=== PATIENT | male | born 1955 | race Caucasian/White ===

== ENCOUNTER 2021-07-22 15:11 | Emergency (ER) | payer MEDICARE ==
[2021-07-22 16:56] VITALS: BP 121/78; PULSE 103; RESP 18; TEMP 98.1
[2021-07-22] MEDS ORDERED: SULFAMETHOX-TMP 800-160MG 1 EACH TAB PO STA (20:16)
[2021-07-22] MEDS ORDERED: HYDROcodone/APAP 5-325MG 1 EACH TAB PO STA (20:16)
--- NOTE | 2021-07-22 21:13 | ED ---
General Adult HPI - General Chief complaint: Skin/Abscess/Foreign Body Stated complaint: infected surgical site Time Seen by Provider: 07/22/21 19:38 Source: patient, RN notes reviewed, old records reviewed Mode of arrival: ambulatory Limitations: no limitations - History of Present Illness Initial comments: I evaluated the patient when he was placed in a room. 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 Patient states that the I&D took place [place]. He recently [place] here. He originally had it I&D of a small groin boil secondary to a suspicious ingrown hair multiple months ago. He states it recurred and was again I&D'd last week at an outside hospital. He states it is continuing to drain, however he cannot see it and wishes for her to be evaluated. He was not given any antibiotics. Denies any fevers, chills, sick contacts, chest pain, cough, abdominal pain, nausea, vomiting. He otherwise has no acute complaints this time. He states is still draining into the pads a red- colored discharge. Denies any urinary complaints. He is having bowel movements. Has no other acute complaints at this time. He has no follow-up and this area and had nowhere else to go. - Related Data Previous Rx's Medication Instructions Recorded Sulfamethox-Tmp 800-160Mg [Bactrim 1 tab PO Q12HR 7 Days #14 tab 07/22/21 DS 800-160 mg] Allergies Allergy/AdvReac Type Severity Reaction Status Date / Time No Known Allergies Allergy Verified 07/22/21 16:56 Review of Systems ROS Statement: Those systems with pertinent positive or pertinent negative responses have been documented in the HPI. Review of Systems: CONST: Denies fever EYES: Denies blurry vision ENT: Denies nasal congestion C/V: Denies Chest pain RESP: Denies shortness of breath GI: Denies abdominal pain : Denies dysuria SKIN: Endorses groin lanced boil MSK: Denies joint pain. NEURO: Denies headache ROS Other: All systems not noted in ROS Statement are negative. Past Medical History Past Medical History: Hyperlipidemia, Hypertension, Seizure Disorder Additional Past Medical History / Comment(s): lung CA, right side lobectomy History of Any Multi-Drug Resistant Organisms: MRSA Date of last positivie culture/infection: 2020 Past Surgical History: Appendectomy, Cholecystectomy Additional Past Surgical History / Comment(s): colonoscopy with polyp removal, brain surgery with aneurysm clip Past Psychological History: No Psychological Hx Reported Smoking Status: Current every day smoker Past Alcohol Use History: None Reported Past Drug Use History: None Reported General Exam - General Exam Comments Initial Comments: General: Appears in no acute distress. HEAD: Normal with no signs of head trauma. EYES: EOMI ENT: Hearing grossly intact RESPIRATORY: Clear breath sounds bilaterally. No wheezes, rales, or rhonchi. C/V: Regular rate and rhythm. S1 and S2 auscultated, no edema, peripheral pulses 2+ and intact throughout ABD: Abd is soft, nontender, nondistended EXT: No obvious deformity SKIN:. Medial exam was performed in the presence of the staff member. Patient has a lanced area of skin located in the perineal region midline between the testicles and anus. It is actively draining what appears to be more of a serious fluid. However there is surrounding erythema concerning for a mild cellulitis. No obvious fluctuance is palpated. There is no induration. NEURO: Alert and oriented 4. Limitations: no limitations Course Vital Signs 07/22/21 16:47 Temperature 98.1 F Pulse Rate 103 H Respiratory 18 Rate Blood Pressure 121/78 O2 Sat by Pulse 95 Oximetry Medical Decision Making - Medical Decision Making Based on patient's presentation and physical exam, patient is a mild area of cellulitis around her recently lanced abscess located in the perineal region. I did place the ultrasound on the region and attempted pertinent picture but was unsuccessful. There was no signs of abscess or collection of fluid below the recently lanced area. It is actively draining. Due to this running cellulitis I will start the patient on Bactrim. He was given [place] for analgesia here in the department. I'll provide him with follow-up information with surgery at his request. I will provide the patient with a prescription for Bactrim DS . I instructed the patient to follow up with their PCP in the next 3 days. [I provided contact information for follow up with] [facility]. I explained that the patient should return to the emergency department if they experience any worsening symptoms. Strict return precautions were discussed with the patient. The patient expressed understanding of these instructions. I answered all questions that the patient had. The patient was discharged home in fair condition with their prescriptions and follow up information. Disposition Clinical Impression: History of incision and drainage, Cellulitis Disposition: HOME SELF-CARE Condition: Fair Instructions (If sedation given, give patient instructions): Cellulitis (ED), Abscess Incision and Drainage (ED) Prescriptions: Sulfamethox-Tmp 800-160Mg [Bactrim DS 800-160 mg] 1 tab PO Q12HR 7 Days #14 tab Is patient prescribed a controlled substance at d/c from ED?: No Referrals: None,Stated [Primary Care Provider] - 1-2 days Mendoza Sorto MD [STAFF PHYSICIAN] - 1-2 days Enio Akins MD [STAFF PHYSICIAN] - 1-2 days
== END 2021-07-22 21:23 | disposition home or self-care (01) ==
LOC: EDBD → EC 15:11
DX: L03.314 Cellulitis of groin (principal); I10 Essential (primary) hypertension; E78.5 Hyperlipidemia, unspecified; F17.200 Nicotine dependence, unspecified, uncomplicated; Z85.118 Personal history of other malignant neoplasm of bronchus and lung; Z90.49 Acquired absence of other specified parts of digestive tract; Z87.2 Personal history of diseases of the skin and subcutaneous tissue
CPT/HCPCS: 99283